=== PATIENT | male | born 1955 | race Caucasian/White ===

== ENCOUNTER → 2017-09-02 | Day surgery (SDC) | payer BC ==
[~2017-09-02] MED LIST: Lactated Ringers 1,000 ML IV SCH; Propofol 200 MG/20 ML SDV IV ONE
--- NOTE | 2017-09-05 08:00 | OR ---
DATE OF OPERATION: 09/02/2017 PREOPERATIVE DIAGNOSIS: HISTORY OF POLYPS. POSTOPERATIVE DIAGNOSIS: HISTORY OF POLYPS. SURGEON: Blas Kowalski MD PROCEDURE: FULL LENGTH COLONOSCOPY WITH POLYP REMOVAL X2. ANESTHESIA: [employer] WORK[employer] due to morbid obesity. COMPLICATIONS: None. SPECIMEN: Tubulous adenoma, cecum. FINDINGS: 1. Full-length colonoscopy. 2. Two villous adenomas, cecum. 3. Mild sigmoid diverticulosis. RECOMMENDATIONS: Follow up colonoscopy in 3 years. INDICATIONS: The patient was in for a routine physical. He is due for a routine colonoscopy for polyp followup. DESCRIPTION OF PROCEDURE: The patient was prepped and draped, placed in left lateral decubitus position. A lubricated Olympus colonoscope was inserted and safely and easily advanced to the cecum. Direct visualization of the ileocecal valve and appendiceal orifice was accomplished. The bowel prep was fine. Just on the backside of the ileocecal valve, the patient had a haustral fold that had elongated and thin villous lesion on it. We were able to remove it in its entirety with 4 cold forceps biopsies. Just again, right outside the cecum on the backside of the haustral fold, the patient had a large villous lesion, probably measuring close to a centimeter in size. We removed it in 2 pieces with a snare and suctioned into polyp trap #1 without any complication. The rest of the ascending and transverse colon were completely benign. Throughout the left colon, I could find no signs of any polyps, mass, ulcerations, or bleeding sites. No vascular abnormalities or signs of colitis. There were very mild sigmoid diverticula in the sigmoid area but no inflammatory changes. The rectal vault was benign. Retroflexion of the scope in the rectum showed no anal lesions. Air was suctioned, scope was removed without complication. RADHA/LORI /[id number]
== END ==
LOC: CC.SDS 06:57
PROVIDERS: ATTEND Family Medicine
DX: Z12.11 Encounter for screening for malignant neoplasm of colon (principal); K57.30 Diverticulosis of large intestine without perforation or abscess without bleeding; N40.0 Benign prostatic hyperplasia without lower urinary tract symptoms; I10 Essential (primary) hypertension; E78.00 Pure hypercholesterolemia, unspecified; E11.9 Type 2 diabetes mellitus without complications; Z86.010 Personal history of colon polyps; Z91.19 Patient's noncompliance with other medical treatment and regimen; Z79.82 Long term (current) use of aspirin; Z79.899 Other long term (current) drug therapy; Z79.84 Long term (current) use of oral hypoglycemic drugs; Z98.890 Other specified postprocedural states
CPT/HCPCS: 82962; J2704; J7120

== ENCOUNTER 2020-09-22 10:22 | Observation (INO) | payer BC ==
[2020-09-22 10:56] LABS: CHLORIDE,CL 105 mEq/L (98-106); SODIUM,NA 142 mEq/L (136-145)
[2020-09-22] MEDS ORDERED: Acetaminophen 325 MG Tab PO PRN (12:01)
[2020-09-22] MEDS ORDERED: Ondansetron 4 MG/2 ML SDV IV PRN (12:01)
[2020-09-22] MEDS ORDERED: Iopamidol 755 Mg/ML 200 ML Bottle IV ONE (12:15)
[2020-09-22] MEDS ORDERED: Levofloxacin/Dextrose 5%-Water 500 MG in Premix Bag 1 BAG IV SCH (12:30)
[2020-09-22] MEDS: Pantoprazole 40 MG Vial IVPUSH SCH ×2 (13:24→20:01)
[2020-09-22] MEDS: Sodium Chloride 0.9% 1,000 ML IV SCH ×2 (13:24→21:31)
[2020-09-22] MEDS ORDERED: Ketorolac 30 MG/ML SDV IVPUSH PRN (17:04)
[2020-09-22] MEDS ORDERED: Acetaminophen/HYDROcodone 325-5 MG Tab PO PRN (17:05)
[2020-09-22] MEDS ORDERED: METFORMIN HCL 1000 MG PO SCH (17:30)
[2020-09-22] MEDS ORDERED: Insulin NPH HUM/REG Insulin HM 100 UNIT/ML 3 ML Vial SQ SCH (17:30)
[2020-09-22] MEDS ORDERED: FENOFIBRATE 160 MG PO SCH (17:30)
[2020-09-22] MEDS ORDERED: Tamsulosin 0.4 MG Cap.ER PO SCH (18:00)
[2020-09-22] MEDS ORDERED: Enoxaparin 40 MG/0.4 ML Syringe SUBCUT SCH (20:00)
[2020-09-22] MEDS ORDERED: ATORVASTATIN 20 MG PO SCH (20:00)
[2020-09-23] MEDS: Sodium Chloride 0.9% 1,000 ML IV SCH (05:44)
[2020-09-23] MEDS: Pantoprazole 40 MG Vial IVPUSH SCH (07:44)
[2020-09-23] MEDS ORDERED: BENAZEPRIL PO SCH (08:00)
[2020-09-23] MEDS ORDERED: SITAGLIPTIN 50 MG PO SCH (08:00)
[2020-09-23] MEDS ORDERED: Insulin NPH HUM/REG Insulin HM 100 UNIT/ML 3 ML Vial SQ SCH (08:00)
[2020-09-23] MEDS ORDERED: HYDROCHLOROTHIAZIDE PO SCH (08:00)
[2020-09-23] MEDS ORDERED: Aspirin 81 MG Tab.Chew PO SCH (08:00)
--- NOTE | 2020-09-23 09:30 | PCM.DCSUM1 ---
Discharge Summary - Hospital Course HPI Initial Comments: Iam is a 64 yo male who was a direct admit from the clinic yesterday. Patient had some abdominal discomfort and distention the night prior which admitted it was difficult for him to breath. Patient was found to have a 9mm calculus in the proximal left ureter. WBC and CRP were slightly elevated on admit. Diagnosis: Stroke: No - Discharge Data Discharge Date: 09/23/20 Discharge Disposition: Home, Self-Care 01 Condition: Good - Referral to Home Health Primary Care Physician: Blas Kowalski MD - Discharge Diagnosis/Problem(s) (1) Kidney stone on left side SNOMED Code(s): 10293879 ICD Code: N20.0 - CALCULUS OF KIDNEY Status: Acute Current Visit: Yes - Patient Instructions Diet: Usual Diet as Tolerated Activity: As Tolerated Notify Provider of: Fever, Increased Pain, Nausea and/or Vomiting - Discharge Plan *PRESCRIPTION DRUG MONITORING PROGRAM REVIEWED*: No *COPY OF PRESCRIPTION DRUG MONITORING REPORT IN PATIENT GOPAL: No Prescriptions/Med Rec: Tamsulosin [Flomax] 0.4 mg PO PCDINNER #30 cap.er Ketorolac [Toradol] 10 mg PO TID PRN #15 tab PRN Reason: Pain Home Medications: Home Meds Aspirin 81 mg PO DAILY 09/01/17 [History] Benazepril/Hydrochlorothiazide [Lotensin Hct 20-25 mg Tablet] 20 - 25 mg PO DAILY 09/01/17 [History] SitaGLIPtin [Januvia] 100 mg PO DAILY 09/01/17 [History] metFORMIN HCl [Metformin HCl] 1,000 mg PO BID 09/01/17 [History] Insuln Asp Prot/Insulin Aspart [NovoLOG Mix 70-30] 34 units SQ WITHDINNER 09/12/18 [History] Insuln Asp Prot/Insulin Aspart [NovoLOG Mix 70-30] 60 units SQ ACBREAKFAST 09/12/18 [History] Fenofibrate 160 mg PO DAILY 09/22/20 [History] atorvaSTATin Calcium [Atorvastatin Calcium] 20 mg PO DAILY 09/22/20 [History] Acetaminophen/HYDROcodone [[place] 325-5 MG] 1 tab PO Q4H PRN #0 tablet 09/23/20 [Rx] Ketorolac [Toradol] 10 mg PO TID PRN #15 tab 09/23/20 [Rx] Tamsulosin [Flomax] 0.4 mg PO PCDINNER #30 cap.er 09/23/20 [Rx] Oxygen Therapy Mode: Room Air - Discharge Summary/Plan Comment DC Time >30 min.: Yes Discharge Summary/Plan Comment: Iam will be discharged home today, asymptomatic. Will schedule with urology in [place] for re-evaluation. Patient to be sent home with Toradol, [place], and Flomax. Advised Iam if he starts to run any fevers, nausea, vomiting, worsening pain, difficulty urinating to return for reevaluation. Discussed size of stone with patient and concerns as he may not be able to pass it. Patient is to strain urine. - General Info Date of Service: 09/23/20 Admission Dx/Problem (Free Text: Kidney Stone Subjective Update: Los is doing well this morning. States he is completely asymptomatic. Denies passing stone but is urinating without difficulty. Pt is requesting to be discharged today. No fevers thru the night. Denies any abdominal pain, nausea, vomiting, etc... Functional Status: Reports: Pain Controlled, Tolerating Diet, Ambulating, Urinating. Denies: New Symptoms - Review of Systems General: Reports: No Symptoms HEENT: Reports: No Symptoms Pulmonary: Reports: No Symptoms Cardiovascular: Reports: No Symptoms Gastrointestinal: Reports: No Symptoms Genitourinary: Reports: No Symptoms Musculoskeletal: Reports: No Symptoms Skin: Reports: No Symptoms Neurological: Reports: No Symptoms - Patient Data Vitals - Most Recent: Last Vital Signs Temp 97.3 F 09/23/20 07:46 Pulse 88 09/23/20 07:46 Resp 18 09/23/20 07:46 BP 152/64 H 09/23/20 07:46 Pulse Ox 94 L 09/23/20 07:46 Weight - Most Recent: 290 lb I&O - Last 24 hours: Intake & Output 09/22/20 09/23/20 09/23/20 22:59 06:59 14:59 Intake Total 1000 1000 Balance 1000 1000 Lab Results - Last 24 hrs: Laboratory Results - last 24 hr 09/22/20 09/22/20 09/22/20 Range/Units 10:28 10:28 10:28 WBC 12.0 H (5.0-10.0) 10^3/uL RBC 4.70 (4.50-6.00) 10^6/uL Hgb 14.0 (14.0-18.0) g/dL Hct 41.7 (40.0-54.0) % MCV 88.7 (82.0-94.0) fL MCH 29.8 (27.0-32.0) pg MCHC 33.6 (33.0-38.0) g/dL RDW Coeff of [place] 12.5 (11.0-15.0) % Plt Count 219 (150-400) 10^3/uL Neut % (Auto) 79.2 (35-85) % Lymph % (Auto) 10.3 (10-55) % [place] % (Auto) 9.3 (0-16) % Eos % (Auto) 0.9 (0-5) % Baso % (Auto) 0.3 (0-3) % Neut # (Auto) 9.49 H (1.80-7.00) 10^3/uL Lymph # (Auto) 1.23 (1.00-4.80) 10^3/uL [place] # (Auto) 1.12 H (0.00-0.80) 10^3/uL Eos # (Auto) 0.11 (0.00-0.45) 10^3/uL Baso # (Auto) 0.04 10^3/uL Sodium 142 (136-145) mEq/L Potassium 4.1 (3.5-5.0) mEq/L Chloride 105 (98-106) mEq/L Carbon Dioxide 26 (21-32) mmol/L BUN 15 (7-18) mg/dL Creatinine 1.3 (0.7-1.3) mg/dL Est Cr Clr Drug Dosing TNP Estimated GFR (MDRD) 56 L (>=60) mL/min Glucose 205 H D (75-99) mg/dL POC Glucose (75-105) mg/dL Calcium 10.5 H (8.4-10.1) mg/dL Total Bilirubin 1.0 (0.0-1.0) mg/dL AST 23 (15-37) U/L ALT 83 H (12-78) U/L Alkaline Phosphatase 39 L (46-116) U/L C-Reactive Protein 5.3 H (0.2-0.8) mg/dL Total Protein 7.2 (6.4-8.2) g/dL Albumin 3.6 (3.4-5.0) g/dL Amylase 20 L (25-115) U/L Urine Color Yellow (YELLOW) Urine Appearance Clear (CLEAR) Urine pH 7.5 (4.5-8.0) Ur Specific [place] >= 1.030 H (1.003-1.020) Urine Protein >=300 H (NEGATIVE) mg/dL Urine Glucose (UA) 100 H (NEGATIVE) mg/dL Urine Ketones Negative (NEGATIVE) mg/dL Urine Occult Blood Trace-intact H (NEGATIVE) Urine Nitrite Negative (NEGATIVE) Urine Bilirubin Negative (NEGATIVE) Urine Urobilinogen 0.2 (0.2-1.0) EU/dL Ur Leukocyte Esterase Negative (NEGATIVE) Urine RBC 5-10 H (0-5) /HPF Urine WBC Not seen (0-5) /HPF 09/23/20 09/23/20 09/23/20 Range/Units 07:42 08:55 08:55 WBC 8.7 (5.0-10.0) 10^3/uL RBC 4.30 L (4.50-6.00) 10^6/uL Hgb 12.6 L (14.0-18.0) g/dL Hct 37.9 L (40.0-54.0) % MCV 88.1 (82.0-94.0) fL MCH 29.3 (27.0-32.0) pg MCHC 33.2 (33.0-38.0) g/dL RDW Coeff of [place] 12.2 (11.0-15.0) % Plt Count 167 (150-400) 10^3/uL Neut % (Auto) 79.8 (35-85) % Lymph % (Auto) 9.7 L (10-55) % [place] % (Auto) 9.2 (0-16) % Eos % (Auto) 1.0 (0-5) % Baso % (Auto) 0.3 (0-3) % Neut # (Auto) 6.91 (1.80-7.00) 10^3/uL Lymph # (Auto) 0.84 L (1.00-4.80) 10^3/uL [place] # (Auto) 0.80 (0.00-0.80) 10^3/uL Eos # (Auto) 0.09 (0.00-0.45) 10^3/uL Baso # (Auto) 0.03 10^3/uL Sodium 140 (136-145) mEq/L Potassium 3.6 (3.5-5.0) mEq/L Chloride 105 (98-106) mEq/L Carbon Dioxide 24 (21-32) mmol/L BUN 16 (7-18) mg/dL Creatinine 1.3 (0.7-1.3) mg/dL Est Cr Clr Drug Dosing 63.01 Estimated GFR (MDRD) 56 L (>=60) mL/min Glucose 198 H (75-99) mg/dL POC Glucose 143 H (75-105) mg/dL Calcium 9.4 (8.4-10.1) mg/dL Total Bilirubin (0.0-1.0) mg/dL AST (15-37) U/L ALT (12-78) U/L Alkaline Phosphatase (46-116) U/L C-Reactive Protein (0.2-0.8) mg/dL Total Protein (6.4-8.2) g/dL Albumin (3.4-5.0) g/dL Amylase (25-115) U/L Urine Color (YELLOW) Urine Appearance (CLEAR) Urine pH (4.5-8.0) Ur Specific [place] (1.003-1.020) Urine Protein (NEGATIVE) mg/dL Urine Glucose (UA) (NEGATIVE) mg/dL Urine Ketones (NEGATIVE) mg/dL Urine Occult Blood (NEGATIVE) Urine Nitrite (NEGATIVE) Urine Bilirubin (NEGATIVE) Urine Urobilinogen (0.2-1.0) EU/dL Ur Leukocyte Esterase (NEGATIVE) Urine RBC (0-5) /HPF Urine WBC (0-5) /HPF Med Orders - Current: Current Medications Acetaminophen (Acetaminophen 325 Mg Tab) 650 mg PO Q4H PRN PRN Reason: Pain (Mild 1-3)/fever Hydrocodone Bitart/Acetaminophen (Acetaminophen/Hydrocodone 325-5 Mg Tab) 1 tab PO Q4H PRN PRN Reason: Pain (moderate 4-6) Aspirin (Aspirin 81 Mg Tab.Chew) 81 mg PO DAILY [facility] Last Admin: 09/23/20 07:44 Dose: 81 mg Documented by: Atorvastatin Calcium (Atorvastatin 20 Mg Tab Pt Own) 20 mg PO BEDTIME [facility] Enoxaparin Sodium (Enoxaparin 40 Mg/0.4 Ml Syringe) 40 mg SUBCUT BEDTIME [facility] Last Admin: 09/22/20 20:01 Dose: 40 mg Documented by: Fenofibrate (Fenofibrate 160 Mg Tab Pt Own) 160 mg PO WITHDINNER [facility] Sodium Chloride (Normal Saline) 1,000 mls @ 125 mls/hr IV ASDIRECTED [facility] Last Admin: 09/23/20 05:44 Dose: 125 mls/hr Documented by: Levofloxacin/Dextrose 500 mg/ (Premix) 100 mls @ 100 mls/hr IV Q24H [facility] Last Admin: 09/22/20 13:24 Dose: 100 mls/hr Documented by: Insulin NPH Beef/Pork (Insulin Nph Hum/Reg Insulin Hm 100 Unit/Ml 3 Ml Vial) 34 unit SQ WITHDINNER [facility] Last Admin: 09/22/20 18:19 Dose: 34 unit Documented by: Insulin NPH Beef/Pork (Insulin Nph Hum/Reg Insulin Hm 100 Unit/Ml 3 Ml Vial) 60 unit SQ WITHBREAKFAST [facility] Last Admin: 09/23/20 07:45 Dose: 60 unit Documented by: Ketorolac Tromethamine (Ketorolac 30 Mg/Ml Sdv) 30 mg IVPUSH Q6H PRN PRN Reason: Pain (moderate 4-6) Stop: 09/27/20 17:04 Benazepril/Hydrochlorothiazide [Lotensin] 20-25 Mg Tab *Pt Own* 20 - 25 mg PO DAILY [facility] Sitagliptin [Januvia ] 50 Mg Tablet *Pt Own* 0 mg PO DAILY [facility] Metformin Hcl 1000 Mg Tablet Pt Own* * 0 mg PO BIDMEALS [facility] Ondansetron HCl (Ondansetron 4 Mg/2 Ml Sdv) 4 mg IV Q4H PRN PRN Reason: Nausea/Vomiting Pantoprazole Sodium (Pantoprazole 40 Mg Vial) 40 mg IVPUSH BID [facility] Last Admin: 09/23/20 07:44 Dose: 40 mg Documented by: Tamsulosin HCl (Tamsulosin 0.4 Mg Cap.Er) 0.4 mg PO PCDINNER [facility] Last Admin: 09/22/20 18:19 Dose: 0.4 mg Documented by: Discontinued Medications Iopamidol (Iopamidol 755 Mg/Ml 200 Ml Bottle) 160 ml IV ONETIME ONE Stop: 09/22/20 12:16 Last Admin: 09/22/20 18:03 Dose: Not Given Documented by: - Exam General: Reports: Alert, Oriented, Cooperative, No Acute Distress Lungs: Reports: Clear to Auscultation, Normal Respiratory Effort Cardiovascular: Reports: Regular Rate, Regular Rhythm, No Murmurs GI/Abdominal Exam: Normal Bowel Sounds, Soft, Non-Tender, No Distention Extremities: Normal Inspection, Pedal Edema (trace bilateral) Skin: Reports: Warm, Dry, Intact Psy/Mental Status: Reports: Alert, Normal Affect, Normal Mood
== END 2020-09-23 09:47 | disposition home or self-care (01) ==
LOC: CC.FCMC 10:22 → CC.MS 10:22 → UNDOADMOB 11:37 → CC.MS 11:37
PROVIDERS: ADMIT Family Medicine; ATTEND Family Medicine
DX: N13.2 Hydronephrosis with renal and ureteral calculous obstruction (principal); I10 Essential (primary) hypertension; E78.00 Pure hypercholesterolemia, unspecified; E11.9 Type 2 diabetes mellitus without complications; Z79.82 Long term (current) use of aspirin; Z98.890 Other specified postprocedural states; Z79.899 Other long term (current) drug therapy; Z79.4 Long term (current) use of insulin
CPT/HCPCS: 36415; 74019; 74176; 80048; 80053; 81001; 82150; 82947; 85025; 86140; 96365; 96372; 96375; 96376; A9270-GY; C9113; G0378; J1650; J1815-GY; J1956; J7030

== ENCOUNTER → 2020-11-14 | Day surgery (SDC) | payer MEDICARE, BC ==
[~2020-11-14] MED LIST changes: +Flumazenil 0.1 MG/ML 5 ML MDV ONE; +Midazolam 1 MG/ML 2 ML SDV ONE; +Phenylephrine 1% 10 MG/ML SDV ONE; -Propofol 200 MG/20 ML SDV IV ONE; +Propofol 200 MG/20 ML SDV ONE; +fentaNYL 100 MCG/2 ML SDV ONE
--- NOTE | 2020-11-14 10:31 | OR ---
DATE OF OPERATION: 11/14/2020 PREOPERATIVE DIAGNOSIS: HISTORY OF POLYPS. POSTOPERATIVE DIAGNOSIS: HISTORY OF POLYPS. SURGEON: Blas Kowalski MD PROCEDURE: FULL-LENGTH DIAGNOSTIC COLONOSCOPY WITH FORCEPS POLYP REMOVAL X2, SNARE POLYPECTOMY X1. ANESTHESIA: MAC. COMPLICATIONS: None. SPECIMEN: 1. Tubular adenoma, rectal vault, 3 to 4 mm. 2. Small sessile polyp, descending colon, 2 mm. 3. Elongated villous polyp, cecum, over a cm. RECOMMENDATIONS: Followup pending path report. INDICATIONS: Mr. Tovar had prior polyps removed and this is a 3-year followup scope. DESCRIPTION OF PROCEDURE: The patient was prepped and draped, placed in the left lateral decubitus position. A lubricated Olympus colonoscope was inserted and easily advanced to the cecum. Direct visualization of the ileocecal valve and appendiceal orifice was accomplished. The bowel prep was adequate. Upon withdrawal of the scope in the cecal pouch on the backside of another fold, the patient did have a very flat villous lesion measuring over a cm, tried twice to get into position, remove this with a snare, it just was too flat. We ended up removing this with about 6 to 8 forceps biopsies without any complication. The rest of the ascending and transverse colons were benign. In the descending colon, the patient had a small sessile polyp about 2 to 3 mm, removed in its entirety with a forceps. For the most part, the sigmoid and rectosigmoid areas appeared benign. There may have been a few scattered diverticula, but minimal in severity. In the proximal rectal vault, the patient had a small tubular adenoma measuring 3 to 4 mm, removed easily with a snare and suctioned into polyp trap #1. Retroflexion of the scope in the rectum showed no anal lesions. Air was then suctioned and the scope removed without complication. RADHA/LORI /[id number]
== END ==
LOC: CC.SDS 06:18
PROVIDERS: ATTEND Family Medicine
DX: Z12.11 Encounter for screening for malignant neoplasm of colon (principal); D12.0 Benign neoplasm of cecum; D12.4 Benign neoplasm of descending colon; D12.8 Benign neoplasm of rectum; K57.30 Diverticulosis of large intestine without perforation or abscess without bleeding; N40.0 Benign prostatic hyperplasia without lower urinary tract symptoms; I10 Essential (primary) hypertension; E78.00 Pure hypercholesterolemia, unspecified; E66.9 Obesity, unspecified; E11.9 Type 2 diabetes mellitus without complications; Z79.82 Long term (current) use of aspirin; Z79.899 Other long term (current) drug therapy; Z79.4 Long term (current) use of insulin; Z68.38 Body mass index [BMI] 38.0-38.9, adult
CPT/HCPCS: 45380; 45385; J2250; J2370; J2704; J3010; J3490; J7120; 00812; 88305

== ENCOUNTER 2021-04-22 07:09 | Observation (INO) | payer MEDICARE, BC ==
[2021-04-22 10:37] LABS: CHLORIDE,CL 111 mEq/L (98-106); SODIUM,NA 145 mEq/L (136-145)
[2021-04-22] MEDS ORDERED: Acetaminophen 325 MG Tab PO PRN (11:29)
[2021-04-22] MEDS ORDERED: Sodium Chloride 0.9% 10 ML Syringe FLUSH PRN (11:29)
[2021-04-22] MEDS ORDERED: Furosemide 40 MG/4 ML VIAL IVPUSH ONE (12:00)
[2021-04-22] MEDS ORDERED: Metoprolol Tartrate 25 MG Tab PO SCH (12:00)
[2021-04-22] MEDS: Apixaban 5 MG Tab PO SCH ×2 (12:02→19:35)
[2021-04-22] MEDS ORDERED: Diltiazem 25 MG/5 ML SDV IVPUSH ONE (12:22)
[2021-04-22] MEDS ORDERED: Codeine/Promethazine 10-6.25 MG/5 ML Syrup 5 ML UD Cup PO PRN (15:41)
[2021-04-22] MEDS: METFORMIN HCL 1000 MG PO SCH (17:01)
[2021-04-22] MEDS ORDERED: Insulin NPH HUM/REG Insulin HM 100 UNIT/ML 3 ML Vial SQ SCH (17:30)
[2021-04-22] MEDS: Metoprolol Tartrate 25 MG Tab PO SCH (19:35)
[2021-04-22] MEDS ORDERED: METFORMIN HCL 1000 MG PO SCH (20:00)
[2021-04-22] MEDS ORDERED: Temazepam 15 MG Cap PO PRN (23:42)
[2021-04-23] MEDS ORDERED: Temazepam 15 MG Cap ONE (00:24)
[2021-04-23] MEDS ORDERED: Insulin NPH HUM/REG Insulin HM 100 UNIT/ML 3 ML Vial SQ SCH ×2 (07:00→17:30)
[2021-04-23] MEDS: Apixaban 5 MG Tab PO SCH (07:55)
[2021-04-23] MEDS: Metoprolol Tartrate 25 MG Tab PO SCH (07:55)
[2021-04-23] MEDS: METFORMIN HCL 1000 MG PO SCH (07:59)
[2021-04-23] MEDS ORDERED: SITAGLIPTIN 100 MG PO SCH (08:00)
[2021-04-23] MEDS ORDERED: BENAZEPRIL PO SCH (08:00)
[2021-04-23] MEDS ORDERED: Aspirin 81 MG Tab.Chew PO SCH (08:00)
[2021-04-23] MEDS ORDERED: HYDROCHLOROTHIAZIDE PO SCH (08:00)
--- NOTE | 2021-04-23 11:14 | DISCH ---
REASON FOR HOSPITALIZATION: Admission Diagnosis: Atrial fibrillation. DISCHARGE DIAGNOSIS: 1. ATRIAL FIBRILLATION. 2. TYPE 2 DIABETES, REQUIRING INSULIN. 3. HYPERTENSION. 4. HYPERLIPIDEMIA. HISTORY: The patient is a 65-year-old male who presented with cough and cold symptoms to Dharmesh Stanley's office. He had an EKG done due to tachycardia and was found to be in rapid atrial fibrillation. He was initiated on Eliquis and Toprol and admitted to the hospital for such. HOSPITAL COURSE: The patient was initially not controlled with Toprol orally. He did get a dose of IV Cardizem and his rate came down very quick. He has remained in atrial fibrillation, but he has been controlled in the 70s or 80s. Did have a slightly elevated proBNP on admit, likely rate induced and is not showing any signs of volume overload at this time. He had a negative troponin on admit. Looking at his vitals, he has been running a pulse in the 70s and 80s over the last 24 hours. Blood pressures are fine. Echocardiogram was done, which shows some mitral regurg and dilation of the left atrium over 5 cm. His EF is 55%. The patient at this time on Toprol 25 mg b.i.d. and controlled rate. He is on Eliquis and did get one dose of IV diltiazem. We will send him home on oral Toprol once a day with his Eliquis and see him in the clinic next week in followup, and we will ultimately get him a consultation with Dr. Booth for cardiac eval. I did briefly explain to him at length rate control, stroke prevention with anticoagulation, possibilities for further treatments including cardioversion, Watchman procedure, etc. COMPLICATIONS: During his stay were none. CONSULTATIONS: None. DISPOSITION: Discharged home. RADHA/LORI /[id number]
== END 2021-04-23 10:32 | disposition home or self-care (01) ==
LOC: CC.FCMC 07:09 → UNDOADMOB 11:13 → CC.MS 11:13
PROVIDERS: ADMIT Physician Assistant Medical; ATTEND Family Medicine
DX: R05.9 Cough, unspecified (principal); R06.02 Shortness of breath; I48.91 Unspecified atrial fibrillation; R60.0 Localized edema; R14.0 Abdominal distension (gaseous); N40.0 Benign prostatic hyperplasia without lower urinary tract symptoms; I11.0 Hypertensive heart disease with heart failure; I50.9 Heart failure, unspecified; E11.9 Type 2 diabetes mellitus without complications; E78.5 Hyperlipidemia, unspecified; Z20.822 Contact with and (suspected) exposure to COVID-19; Z79.82 Long term (current) use of aspirin; Z79.899 Other long term (current) drug therapy; Z79.4 Long term (current) use of insulin; Z79.84 Long term (current) use of oral hypoglycemic drugs
CPT/HCPCS: 36415; 71046; 80048; 80053; 82550; 82947; 83880; 84484; 85025; 93005; 93010; 93306; 96374; 96375; 99217; 99220; A9270-GY; G0378; J1815-GY; J1940; J3490; U0002

== ENCOUNTER 2022-12-28 09:39 | Emergency (ER) | payer MEDICARE, BC ==
[2022-12-28] MEDS: Metoprolol Tartrate 5 MG/5 ML SDV IVPUSH ONE (10:52)
[2022-12-28] MEDS: Furosemide 40 MG/4 ML VIAL IVPUSH ONE (10:53)
== END 2022-12-28 12:53 | disposition home or self-care (01) ==
LOC: CC.ED 09:39
DX: I48.19 Other persistent atrial fibrillation (principal); I11.0 Hypertensive heart disease with heart failure; I50.9 Heart failure, unspecified; E78.00 Pure hypercholesterolemia, unspecified; E11.9 Type 2 diabetes mellitus without complications; Z79.4 Long term (current) use of insulin; Z79.899 Other long term (current) drug therapy; Z79.01 Long term (current) use of anticoagulants
CPT/HCPCS: 36415; 71046; 80053; 83880; 84443; 84484; 85025; 93005; 93010; 96374; 96375; 99284; 99284-25; J1940; J3490

== ENCOUNTER 2023-03-10 15:09 | Inpatient (IN) | payer MEDICARE, BC ==
[2023-03-10 15:31] LABS: BASOPHILS ABSOLUTE AUTO 0.06 10^3/uL (0.00-0.50); BASOPHILS PERCENT AUTO 0.5 % (0-1); EOSINOPHILS ABSOLUTE AUTO 0.16 10^3/uL (0.00-1.50); EOSINOPHILS PERCENT AUTO 1.5 % (0-6); HEMATOCRIT 46.6 % (42.0-52.0); IMMATURE GRAN ABSOLUTE AUTO 0.01 10^3/uL (0.00-0.49); IMMATURE GRAN PERCENT AUTO 0.1 % (0.0-4.9); LYMPHOCYTES ABSOLUTE AUTO 1.26 10^3/uL (0.60-5.00); LYMPHOCYTES PERCENT AUTO 11.5 % (24-44); MEAN CORPUSCULAR HEMOGLOBIN 28.8 pg (27.0-32.0); MEAN CORPUSCULAR HGB CONC 32.2 g/dL (32.0-36.0); MEAN CORPUSCULAR VOLUME 89.4 fL (83.0-97.0); MONOCYTES ABSOLUTE AUTO 1.28 10^3/uL (0.00-1.50); MONOCYTES PERCENT AUTO 11.7 % (0-10); NEUTROPHILS ABSOLUTE AUTO 8.15 x10^3/uL (1.80-8.00); NEUTROPHILS PERCENT AUTO 74.7 % (41-71); PLATELET COUNT,PLT 226 10^3/uL (150-400); RED BLOOD CELL COUNT 5.21 x10^6/uL (4.50-6.00); WHITE BLOOD CELL COUNT,WBC 10.9 10^3/uL (4.0-11.0)
[2023-03-10 15:32] LABS: APPEARANCE,URINE SLIGHTLY CLOUDY (CLEAR); GLUCOSE,URINE NEGATIVE (NEGATIVE); KETONES,URINE NEGATIVE (NEGATIVE); LEUKOCYTE ESTERASE,URINE NEGATIVE (NEGATIVE); NITRITE,URINE NEGATIVE (NEGATIVE); OCCULT BLOOD,URINE SMALL (NEGATIVE); PH,URINE 5.5 (4.5-8.0); PROTEIN,URINE >=300 mg/dL (NEGATIVE); UROBILINOGEN,URINE 0.2 EU/dL (0.2-1.0)
[2023-03-10 15:43] LABS: BILIRUBIN,URINE SMALL (NEGATIVE); COLOR,URINE DARK YELLOW (YELLOW)
[2023-03-10 15:44] LABS: BACTERIA,URINE OCCASIONAL /HPF (NOT SEEN); GRANULAR CASTS,URINE FEW /LPF (NOT SEEN); HYALINE CASTS,URINE FEW /LPF (NOT SEEN); RBC,URINE 0-5 /HPF (0-5); SQUAMOUS EPITHELIAL CELLS,UR FEW /HPF (NOT SEEN); WBC,URINE 0-5 /HPF (0-5)
[2023-03-10 15:45] LABS: CALCIUM OXALATE CRYSTALS,URINE MODERATE /HPF (NOT SEEN)
[2023-03-10 15:54] LABS: ALANINE AMINOTRANSFERASE,ALT 37 U/L (12-78); ALBUMIN 3.2 g/dL (3.4-5.0); ALKALINE PHOSPHATASE 45 U/L (46-116); ASPARTATE AMNIOTRANSFERASE,AST 68 U/L (15-37); BILIRUBIN TOTAL 1.2 mg/dL (0.0-1.0); BLOOD UREA NITROGEN,BUN 24 mg/dL (7-18); CALCIUM 10.1 mg/dL (8.4-10.1); CARBON DIOXIDE,CO2 27 mmol/L (21-32); CHLORIDE,CL 109 mEq/L (98-106); CREATININE 1.6 mg/dL (0.7-1.3); ESTIMATED GFR 47 mL/min (>=60); GLUCOSE RANDOM 89 mg/dL (75-99); POTASSIUM,K 4.8 mEq/L (3.5-5.0); PRO B-TYPE NATRIUR PEPT,BNPPRO 3513 pg/mL (0-1000); PROTEIN TOTAL,TP 6.6 g/dL (6.4-8.2); SODIUM,NA 145 mEq/L (136-145)
[2023-03-10] MEDS ORDERED: Furosemide 100 MG/10 ML SDV IVPUSH ONE (18:10)
[2023-03-10] MEDS ORDERED: Zolpidem 5 MG Tab PO PRN (22:19)
[2023-03-10] MEDS ORDERED: Polyethylene Glycol 3350 Powder 17 GM Packet PO PRN (22:23)
[2023-03-10] MEDS ORDERED: Sodium Chloride 0.9% 10 ML Syringe FLUSH PRN (22:23)
[2023-03-10] MEDS ORDERED: Ondansetron 4 MG Tab.DIS PO PRN (22:23)
[2023-03-10] MEDS ORDERED: Acetaminophen 325 MG Tab PO PRN (22:23)
[2023-03-10] MEDS ORDERED: Docusate Sodium 100 MG Cap PO PRN (22:23)
[2023-03-10] MEDS ORDERED: Ondansetron 4 MG/2 ML SDV IV PRN (22:23)
[2023-03-10] MEDS: metFORMIN 500 MG Tab PO SCH (23:09)
[2023-03-11] MEDS: Apixaban 5 MG Tab PO SCH ×2 (07:31→20:06)
[2023-03-11] MEDS: Diltiazem 120 MG Cap.CD PO SCH (07:31)
[2023-03-11] MEDS: atorvaSTATin 20 MG Tab PO SCH (07:31)
[2023-03-11] MEDS: Multivitamin Tab PO SCH (07:32)
[2023-03-11] MEDS: Metoprolol Succinate 100 MG Tab.ER PO SCH (07:32)
[2023-03-11] MEDS: Fenofibrate 160 MG Tab PO SCH (07:33)
[2023-03-11] MEDS: Lisinopril 20 MG Tab PO SCH (07:33)
[2023-03-11] MEDS: Furosemide 40 MG/4 ML VIAL IVPUSH SCH ×2 (07:33→15:39)
[2023-03-11] MEDS: metFORMIN 500 MG Tab PO SCH ×2 (07:34→20:06)
[2023-03-11 07:58] LABS: BASOPHILS ABSOLUTE AUTO 0.05 10^3/uL (0.00-0.50); BASOPHILS PERCENT AUTO 0.6 % (0-1); EOSINOPHILS ABSOLUTE AUTO 0.23 10^3/uL (0.00-1.50); EOSINOPHILS PERCENT AUTO 2.8 % (0-6); HEMATOCRIT 43.9 % (42.0-52.0); HEMOGLOBIN 14.1 g/dL (14.0-18.0); IMMATURE GRAN ABSOLUTE AUTO 0.01 10^3/uL (0.00-0.49); IMMATURE GRAN PERCENT AUTO 0.1 % (0.0-4.9); LYMPHOCYTES ABSOLUTE AUTO 1.26 10^3/uL (0.60-5.00); LYMPHOCYTES PERCENT AUTO 15.4 % (24-44); MEAN CORPUSCULAR HEMOGLOBIN 28.5 pg (27.0-32.0); MEAN CORPUSCULAR HGB CONC 32.1 g/dL (32.0-36.0); MEAN CORPUSCULAR VOLUME 88.9 fL (83.0-97.0); MONOCYTES PERCENT AUTO 12.2 % (0-10); NEUTROPHILS ABSOLUTE AUTO 5.62 x10^3/uL (1.80-8.00); NEUTROPHILS PERCENT AUTO 68.9 % (41-71); PLATELET COUNT,PLT 191 10^3/uL (150-400); RED BLOOD CELL COUNT 4.94 x10^6/uL (4.50-6.00); WHITE BLOOD CELL COUNT,WBC 8.2 10^3/uL (4.0-11.0)
[2023-03-11 08:15] LABS: BILIRUBIN TOTAL 1.1 mg/dL (0.0-1.0); CREATININE 1.4 mg/dL (0.7-1.3); EST CRCL DRUG DOSING (CG) 56.2 mL/min; MAGNESIUM 1.6 mg/dL (1.8-2.4); POTASSIUM,K 3.7 mEq/L (3.5-5.0); PROTEIN TOTAL,TP 6.3 g/dL (6.4-8.2)
[2023-03-11] MEDS: Insulin NPH HUM/REG Insulin HM 100 UNIT/ML 3 ML Vial SQ SCH ×2 (11:24→17:36)
[2023-03-11] MEDS: Potassium Chloride 10 MEQ Tab.ER PO SCH (15:46)
[2023-03-11] MEDS ORDERED: metFORMIN 500 MG Tab PO SCH (22:20)
[2023-03-12] MEDS: Apixaban 5 MG Tab PO SCH ×2 (08:00→20:02)
[2023-03-12] MEDS: metFORMIN 500 MG Tab PO SCH ×2 (08:00→20:02)
[2023-03-12] MEDS: Metoprolol Succinate 100 MG Tab.ER PO SCH (08:01)
[2023-03-12] MEDS: atorvaSTATin 20 MG Tab PO SCH (08:02)
[2023-03-12] MEDS: Fenofibrate 160 MG Tab PO SCH (08:07)
[2023-03-12] MEDS: Multivitamin Tab PO SCH (08:07)
[2023-03-12] MEDS: Potassium Chloride 10 MEQ Tab.ER PO SCH (08:07)
[2023-03-12] MEDS: Lisinopril 20 MG Tab PO SCH (08:07)
[2023-03-12] MEDS: Diltiazem 120 MG Cap.CD PO SCH (08:08)
[2023-03-12] MEDS: Furosemide 40 MG/4 ML VIAL IVPUSH SCH ×2 (08:08→16:03)
[2023-03-12] MEDS: Insulin NPH HUM/REG Insulin HM 100 UNIT/ML 3 ML Vial SQ SCH ×2 (08:09→18:42)
[2023-03-12 08:19] LABS: BASOPHILS ABSOLUTE AUTO 0.05 10^3/uL (0.00-0.50); BASOPHILS PERCENT AUTO 0.6 % (0-1); EOSINOPHILS ABSOLUTE AUTO 0.22 10^3/uL (0.00-1.50); EOSINOPHILS PERCENT AUTO 2.8 % (0-6); HEMATOCRIT 42.7 % (42.0-52.0); HEMOGLOBIN 13.7 g/dL (14.0-18.0); IMMATURE GRAN ABSOLUTE AUTO 0.01 10^3/uL (0.00-0.49); IMMATURE GRAN PERCENT AUTO 0.1 % (0.0-4.9); LYMPHOCYTES ABSOLUTE AUTO 1.21 10^3/uL (0.60-5.00); LYMPHOCYTES PERCENT AUTO 15.4 % (24-44); MEAN CORPUSCULAR HEMOGLOBIN 28.6 pg (27.0-32.0); MEAN CORPUSCULAR HGB CONC 32.1 g/dL (32.0-36.0); MEAN CORPUSCULAR VOLUME 89.1 fL (83.0-97.0); MONOCYTES ABSOLUTE AUTO 0.96 10^3/uL (0.00-1.50); MONOCYTES PERCENT AUTO 12.2 % (0-10); NEUTROPHILS ABSOLUTE AUTO 5.42 x10^3/uL (1.80-8.00); NEUTROPHILS PERCENT AUTO 68.9 % (41-71); PLATELET COUNT,PLT 187 10^3/uL (150-400); RED BLOOD CELL COUNT 4.79 x10^6/uL (4.50-6.00); WHITE BLOOD CELL COUNT,WBC 7.9 10^3/uL (4.0-11.0)
[2023-03-12 08:52] LABS: ALBUMIN 2.9 g/dL (3.4-5.0); CREATININE 1.5 mg/dL (0.7-1.3); EST CRCL DRUG DOSING (CG) 52.45 mL/min; MAGNESIUM 1.6 mg/dL (1.8-2.4); POTASSIUM,K 3.4 mEq/L (3.5-5.0); PROTEIN TOTAL,TP 6.3 g/dL (6.4-8.2)
[2023-03-12] MEDS ORDERED: Potassium Chloride 10 MEQ Tab.ER PO ONE (09:14)
[2023-03-12 10:38] LABS: CALCIUM 9.9 mg/dL (8.4-10.1)
[2023-03-13] MEDS: Metoprolol Succinate 100 MG Tab.ER PO SCH (07:54)
[2023-03-13] MEDS: Lisinopril 20 MG Tab PO SCH (07:55)
[2023-03-13] MEDS: Multivitamin Tab PO SCH (07:55)
[2023-03-13] MEDS: Diltiazem 120 MG Cap.CD PO SCH (07:56)
[2023-03-13] MEDS: atorvaSTATin 20 MG Tab PO SCH (07:56)
[2023-03-13] MEDS: metFORMIN 500 MG Tab PO SCH (07:57)
[2023-03-13] MEDS: Furosemide 40 MG/4 ML VIAL IVPUSH SCH (07:57)
[2023-03-13] MEDS: Fenofibrate 160 MG Tab PO SCH (07:57)
[2023-03-13] MEDS: Apixaban 5 MG Tab PO SCH (07:57)
[2023-03-13] MEDS ORDERED: Potassium Chloride 10 MEQ Tab.ER PO SCH (08:00)
[2023-03-13] MEDS: Insulin NPH HUM/REG Insulin HM 100 UNIT/ML 3 ML Vial SQ SCH (08:34)
[2023-03-13 10:29] LABS: BASOPHILS ABSOLUTE AUTO 0.04 10^3/uL (0.00-0.50); BASOPHILS PERCENT AUTO 0.6 % (0-1); EOSINOPHILS ABSOLUTE AUTO 0.15 10^3/uL (0.00-1.50); EOSINOPHILS PERCENT AUTO 2.3 % (0-6); HEMATOCRIT 44.5 % (42.0-52.0); HEMOGLOBIN 14.3 g/dL (14.0-18.0); IMMATURE GRAN ABSOLUTE AUTO 0.01 10^3/uL (0.00-0.49); IMMATURE GRAN PERCENT AUTO 0.2 % (0.0-4.9); LYMPHOCYTES ABSOLUTE AUTO 0.94 10^3/uL (0.60-5.00); LYMPHOCYTES PERCENT AUTO 14.3 % (24-44); MEAN CORPUSCULAR HEMOGLOBIN 28.7 pg (27.0-32.0); MEAN CORPUSCULAR HGB CONC 32.1 g/dL (32.0-36.0); MEAN CORPUSCULAR VOLUME 89.2 fL (83.0-97.0); MONOCYTES ABSOLUTE AUTO 0.67 10^3/uL (0.00-1.50); MONOCYTES PERCENT AUTO 10.2 % (0-10); NEUTROPHILS ABSOLUTE AUTO 4.78 x10^3/uL (1.80-8.00); NEUTROPHILS PERCENT AUTO 72.4 % (41-71); PLATELET COUNT,PLT 199 10^3/uL (150-400); RED BLOOD CELL COUNT 4.99 x10^6/uL (4.50-6.00); WHITE BLOOD CELL COUNT,WBC 6.6 10^3/uL (4.0-11.0)
[2023-03-13 10:42] LABS: ALBUMIN 3.2 g/dL (3.4-5.0); BILIRUBIN TOTAL 1.4 mg/dL (0.0-1.0); CREATININE 1.5 mg/dL (0.7-1.3); EST CRCL DRUG DOSING (CG) 52.45 mL/min; POTASSIUM,K 3.9 mEq/L (3.5-5.0); PROTEIN TOTAL,TP 6.7 g/dL (6.4-8.2)
[2023-03-13] MEDS ORDERED: Potassium Chloride 10 MEQ Tab.ER PO ONE (11:41)
== END 2023-03-13 13:29 | disposition home or self-care (01) | DRG 292 ==
LOC: CC.MS 15:09 → CC.FCMC 15:09 → CC.MS 16:20 → OBSVTOIN 03-11 14:46
PROVIDERS: ADMIT Nurse Practitioner Family; ATTEND Nurse Practitioner Family
DX: I11.0 Hypertensive heart disease with heart failure (principal); N17.9 Acute kidney failure, unspecified; I50.9 Heart failure, unspecified; I48.91 Unspecified atrial fibrillation; E11.9 Type 2 diabetes mellitus without complications; E78.00 Pure hypercholesterolemia, unspecified; Z79.4 Long term (current) use of insulin; Z79.01 Long term (current) use of anticoagulants; Z79.899 Other long term (current) drug therapy; Z87.442 Personal history of urinary calculi; Z98.890 Other specified postprocedural states
CPT/HCPCS: 36415; 71046; 80053; 81001; 82947; 83735; 83880; 84484; 85025; 93005; 96374; A9270-GY; G0378; J1815-GY; J1940